=== PATIENT | male | born 1970 | race Caucasian/White ===

== ENCOUNTER 2019-09-14 12:24 | Emergency (ER) | payer BC ==
[~2019-09-14] VITALS: Ht 162.6 cm; Wt 78.5 kg
[2019-09-14 12:27] VITALS: BP_SYST 167
--- NOTE | 2019-09-14 12:32 | NUR ---
ambulated to bed 3
--- NOTE | 2019-09-14 12:35 | NUR ---
PATIENT ARRIVED VIA POV, AAOX4, AND AMBULATORY WITH STEADY GAIT. PATIENT STATED C/C OF HYPERTENSION. PATIENT HAS HOME MACHINE AND NOTES B/P WITH SBP OF 180'S, WHICH IS ABNORMAL FOR PATIENT. HE STATES HE TAKES VALSARTAN AND HCTZ. PATIENT STATES IT HAS NOT BEEN CONTROLLING BP EFFECTIVELY. WILL CONTINUE TO FOLLOW UP AND MONITOR.
[2019-09-14] MEDS ORDERED: NACL 0.9% 1,000 ML IV ONE (12:38)
[2019-09-14] MEDS ORDERED: cloNIDine HCL 0.1 MG TABLET PO ONE ×2 (12:45→14:30)
--- NOTE | 2019-09-14 13:04 | NUR ---
ER at bedside examining patient.
[2019-09-14 13:16] LABS: BASOPHILS # (AUTO) 0.1 K/uL (0.0-0.2); EOSINOPHILS # (AUTO) 0.1 K/uL (0.0-0.4); EOSINOPHILS % (AUTO) 1.3 % (0.0-4.0); HEMATOCRIT 45.3 % (36-54); HEMOGLOBIN 15.6 g/dL (14.0-18.0); LYMPHOCYTES # (AUTO) 1.2 K/uL (1.0-5.5); LYMPHOCYTES % (AUTO) 19.8 % (20.5-51.5); MEAN CORPUSCULAR HEMOGLOBIN 32 pg (27-31); MEAN CORPUSCULAR HGB CONC 35 % (32-36); MEAN CORPUSCULAR VOLUME 91 fL (79.0-98.0); MONOCYTES # (AUTO) 0.5 K/uL (0.0-1.0); MONOCYTES % (AUTO) 7.3 % (1.7-9.3); NEUTROPHILS # (AUTO) 4.3 K/uL (1.8-7.7); NEUTROPHILS % (AUTO) 70.6 % (40.0-70.0); PLATELET COUNT (AUTO) 224 K/uL (130-430); RED BLOOD CELL COUNT(AUTO) 4.97 MIL/uL (4.2-6.2); RED CELL DISTRIBUTION WIDTH 12.7 % (9.0-15.0); WHITE BLOOD COUNT (AUTO) 6.1 K/uL (4.8-10.8)
[2019-09-14 13:30] LABS: CALCIUM 9.5 mg/dL (8.4-11.0); CREATININE 0.98 mg/dL (0.55-1.30); POTASSIUM 3.4 mmol/L (3.5-5.1)
[2019-09-14 13:43] LABS: ALBUMIN 4.7 g/dL (3.4-4.8); TOTAL BILIRUBIN 0.3 mg/dL (0.0-1.0)
--- NOTE | 2019-09-14 13:58 | NUR ---
PATIENT GIVEN CLONIDINE ORDERED 0.2 MG, BP 193/117 WITH HR 87.
--- NOTE | 2019-09-14 14:50 | NUR ---
Patient was given clonidine for blood pressure management. Patient was talking about how cold it was in the room, suddenly, he was sweating. Patient notes feeling tingling to hands. Patient heart rate 69-76. Patient blood pressure 100/51, IVF started. MD Crespo informed, held 2nd dose of clonidine.
[2019-09-14 15:30] VITALS: BP_SYST 151
--- NOTE | 2019-09-14 15:30 | NUR ---
Patient given written and verbal discharge instructions and verbalizes understanding. ER MD discussed with patient the results and treatment provided. Patient in stable condition. ID arm band removed. IV catheter removed intact and dressing applied, no active bleeding. Rx not given. Patient educated on pain management and to follow up with PMD. Pain Scale 0/10. Opportunity for questions provided and answered. Medication side effect fact sheet provided.
== END 2019-09-14 15:30 | disposition home or self-care (01) ==
LOC: SED 12:24
DX: I10 Essential (primary) hypertension (principal)
CPT/HCPCS: 36415; 71045; 80053; 82150-TC; 82550-TC; 83605; 83690-TC; 84484; 85025; 87040-TC; 93005; 99285